=== PATIENT | female | born 1955 | race African-American/Black ===

== ENCOUNTER 2022-01-18 12:32 | Inpatient (IN) | payer MEDICARE, OTHER ==
[~2022-01-18] VITALS: Ht 167.6 cm; Wt 74.8 kg
--- NOTE | 2022-01-18 12:32 | NUR ---
Patient seen by physician
[2022-01-18 12:57] LABS: HEMATOCRIT 35.3 % (31.2-41.9); MEAN CORPUSCULAR VOLUME 75.1 fL (75.5-95.3); PLATELET COUNT (AUTO) 344 K/uL (179-408)
[2022-01-18 13:07] LABS: CARBON DIOXIDE 27 mmol/L (21-32); CHLORIDE 104 mmol/L (98-107); CREATININE 0.7 mg/dL (0.6-1.3); GLUCOSE 100 mg/dL (74-106); POTASSIUM 3.4 mmol/L (3.5-5.1); UREA NITROGEN, BLOOD 10 mg/dL (7-18)
[2022-01-18] MEDS ORDERED: QUET200T PO (13:14)
[2022-01-18] MEDS ORDERED: RISP2TAB5 PO (13:14)
[2022-01-18] MEDS ORDERED: OLAN20TA3 PO (13:14)
[2022-01-18] MEDS ORDERED: DIVA500T2 PO (13:14)
[2022-01-18] MEDS ORDERED: AMLO5TAB4 PO (13:14)
[2022-01-18] MEDS ORDERED: RISP3TAB5 PO (13:14)
[2022-01-18] MEDS ORDERED: LORA0.5T48 PO (13:14)
[2022-01-18 13:24] LABS: ETHANOL < 3 MG/DL (0-0)
[2022-01-18 13:27] LABS: ALANINE AMINOTRANSFERASE 23 U/L (14-59); ALKALINE PHOSPHATASE 74 U/L (50-136); ASPARTATE AMINOTRANSFERASE 21 U/L (15-37); BILIRUBIN,DIRECT 0.1 mg/dL (0.0-0.2); BILIRUBIN,TOTAL 0.6 mg/dL (0.2-1.0); TOTAL PROTEIN, SERUM 8.1 g/dL (6.4-8.2)
[2022-01-18 13:28] LABS: ACETAMINOPHEN < 10.0 ug/mL (10-30)
--- NOTE | 2022-01-18 14:12 | NUR ---
Report given to Russ Babb. Patient will be taken to room 145A.
[2022-01-18] MEDS ORDERED: ACETAMINOPHEN 325 MG TABLET PO PRN (15:00)
[2022-01-18] MEDS ORDERED: LORAZEPAM 0.5 MG TABLET PO PRN (15:00)
[2022-01-18] MEDS ORDERED: MAGNESIUM HYDROXIDE 30 ML LIQUID UDC PO PRN (15:00)
[2022-01-18] MEDS ORDERED: MAG HYDROX/AL HYDROX/SIMETH 30 ML LIQUID UDC PO PRN (15:00)
--- NOTE | 2022-01-18 15:45 | NUR ---
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 Lorenz and admitting general practice informed of admission by charge nurse.
[2022-01-18 16:12] VITALS: BP 136/94
[2022-01-18 20:00] VITALS: BP 134/90
[2022-01-18] MEDS ORDERED: TEMAZEPAM 7.5 MG CAPSULE PO PRN (21:00)
--- NOTE | 2022-01-19 05:13 | NUR ---
GPS NOTES: Received patient seating in the hallway, eating her dinner. Patient noted to be guarded when approached, she is being aggravated when attempt to engage in conversation. She is responding to internal stimuli, mumbling to herself and very paranoid. She did not sleep during shift, she was offered PRN to help her sleep but refused. She is observed to be keeping her dinner tray and gets mad when attempt to put it away from her. Patient is monitored for any escalation of behavior.
[2022-01-19 08:22] LABS: BILIRUBIN,TOTAL 0.4 mg/dL (0.2-1.0); CREATININE 0.9 mg/dL (0.6-1.3); POTASSIUM 3.4 mmol/L (3.5-5.1); TOTAL PROTEIN, SERUM 8.5 g/dL (6.4-8.2)
[2022-01-19 08:35] VITALS: BP 151/79
[2022-01-19] MEDS ORDERED: POTASSIUM CHLORIDE 20 MEQ TAB.PRT.SR PO ONE (10:00)
[2022-01-19] MEDS: DIVALPROEX 500 MG TABLET.DR PO SCH ×2 (11:45→16:35)
[2022-01-19] MEDS: risperiDONE 1 MG TABLET PO SCH ×2 (11:45→16:35)
--- NOTE | 2022-01-19 15:29 | NUR ---
GPS: Nursing Notes: Thought Disorder: Patient is awake and responding to her name, A/Ox3, continue to refuse her medications, poor appetite, hyperverbal, hyper-adventist, responding to internal stimuli by talking to self, mumbling to self, grandiose, believes that she is a psychiatrist, a psychologist, and a dewaxer, explained the pros or cons of medications, but continue to refuse her medications, Potassium level 3.4, but refused her loading dose, stated "My level will be okay when I eat my breakfast..", paranoid behavior, poor impulse control impaired judgment, unable to formulate a viable plan for self care, continue to monitor for safety, continue with treatment plan.
--- NOTE | 2022-01-19 15:30 | NUR ---
LEONILA Initial Discharge Note: Pt currently resides at [address] [facility] [address] ([phone]). LEONILA contacted the facility and the line was busy. LEONILA will continue to contact the facility regarding pt's safe return upon discharge. LEONILA fercho continue to work with pt and MD to ensure a safe and proper discharge plan.
--- NOTE | 2022-01-19 15:39 | NUR ---
Firearms Report: Elevator Worker completed and submitted a [employer] firearms report for 5150 a danger to others. A copy of report has been placed in patient chart.
--- NOTE | 2022-01-19 15:43 | NUR ---
LEONILA Family Contact: Pt does not have any available contact at this time. [place] [facility] [place][phone][place] and was not able to be connected due to a busy line.
[2022-01-19 19:00] LABS: THYROID STIMULATING HORMONE 2.7 mIU/mL (0.358-3.740)
[2022-01-19 19:49] VITALS: BP 122/97
[2022-01-19] MEDS: OLANZAPINE 5 MG TABLET PO SCH (20:13)
--- NOTE | 2022-01-20 04:22 | NUR ---
GPS NOTES: Patient remains in her room, A&0x1, she is hyperverbal with flight of ideas thought process, patient unable to make meaning conversation, she is keeping things in her room cj her meal trays, she is responding to internal stimuli. She can make her needs known,and calm when doing so. She is not sleeping, keeping herself occupied arranging things in her room. She refused medications, and prn medications. Frequent monitoring observed.
[2022-01-20] MEDS: DIVALPROEX 500 MG TABLET.DR PO SCH ×2 (08:19→17:00)
[2022-01-20] MEDS: risperiDONE 1 MG TABLET PO SCH ×2 (08:20→17:00)
[2022-01-20] MEDS: FERROUS SULFATE 325 MG TABEC PO SCH (10:00)
[2022-01-20] MEDS ORDERED: OLANZAPINE 10 MG VIAL IM ONE ×2 (11:00→19:45)
--- NOTE | 2022-01-20 11:12 | NUR ---
Patient became agitated, aggressive, striking out at others, combative, with high potential for physical harm to self and others. Dr. Lorenz ordered Zyprexa 10 mg IM. Security was called, 4 people were necessary to administer medication, but no force was applied or needed. Patient refuses vital signs. Patient will be monitored, fall and safety precautions implemented. Reassurance was given.
--- NOTE | 2022-01-20 15:57 | NUR ---
Patient is labile, anxious, outburst at times, restless, refusing her medications, uncooperative, not following directions. A/O X 2 to person. Pt. keeps collecting food trays in her room, and gets mad when they are removed. Patient ambulates without assistance. Self care. Patient is encourage to verbalize concerns. Fall and safety precautions implemented.
--- NOTE | 2022-01-20 19:59 | NUR ---
GPS: Received patient a/o x2 ambulatory. Patient is labile, anxious, outburst at this time. wiping the board and yelling at staff and patients, refused v/s, restless, uncooperative, not following directions. Pt gets mad when staff redirect her. called and received order for Zyprexa 10 mg im x1 now. z IM given without any problem and patient was cooperative. Patient is encourage to verbalize concerns. but is uncooperative at this time. Fall and safety precautions implemented.
--- NOTE | 2022-01-20 20:30 | NUR ---
patient is talking to her self. continue monitoring for safety.
[2022-01-20] MEDS: OLANZAPINE 5 MG TABLET PO SCH (21:00)
[2022-01-20] MEDS: DOCUSATE SODIUM 100 MG CAPSULE PO SCH (21:00)
--- NOTE | 2022-01-20 21:14 | NUR ---
GPS: Received Patient awake ambulating in the [address].A/Ox3, refused all po hs medications, poor appetite, hyperverbal, responding to internal stimuli by talking to self, mumbling to self, grandiose, believes that she is a psychiatrist, paranoid behavior, poor impulse control impaired judgment, unable to formulate a viable plan for self care, continue monitoring for safety.
[2022-01-21] MEDS: LORAZEPAM 1 MG TABLET PO PRN (03:15)
--- NOTE | 2022-01-21 03:15 | NUR ---
patient is very agitated. screaming in the me[address]. ativan 1 mg po prn given.
--- NOTE | 2022-01-21 04:15 | NUR ---
patient is calm now. resting in bed comfortably. prn for agitation effective.
--- NOTE | 2022-01-21 05:42 | NUR ---
GPS:Remain Uncooperative with nursing care, occ talking to her self loud, alert to self only. episodes of closing his room door and turnig the light off, isolative, sitting on her bed, slept 4.45 hrs through the night.continue plan of care.
[2022-01-21] MEDS: AMLODIPINE 5 MG TABLET PO SCH (08:27)
[2022-01-21] MEDS: DIVALPROEX 500 MG TABLET.DR PO SCH ×2 (08:27→17:00)
[2022-01-21] MEDS: FERROUS SULFATE 325 MG TABEC PO SCH (08:27)
[2022-01-21] MEDS: risperiDONE 1 MG TABLET PO SCH ×2 (08:28→17:00)
--- NOTE | 2022-01-21 16:03 | NUR ---
Patient is refusing medications, reise was filed today. Patient intentionally wet the floor for someone to slid and fall. Patient is anxious, hyperverbal, argumentative, uncooperative with nursing care, psychotic, delusional "Stop being a coward and speak to me face to face". Active listening provided. Fall and safety precautions implemented.
[2022-01-21] MEDS: OLANZAPINE 5 MG TABLET PO SCH (20:19)
[2022-01-21] MEDS: DOCUSATE SODIUM 100 MG CAPSULE PO SCH (20:19)
--- NOTE | 2022-01-21 20:55 | NUR ---
GPS: Pt.refused V/S check earlier as well as bedtime meds. despite explanation of risks vs benefits x3. Pt.is hyperverbal,uncooperative,responding to internal stimuli, has tangential thoughts,flight of ideas and easily irritable when approached and when being re-directed. No striking out behavior noted. AWOL precautions observed. Will continue to monitor for any escalation of behavior.
[2022-01-22] MEDS: DIVALPROEX 500 MG TABLET.DR PO SCH (08:29)
[2022-01-22] MEDS: risperiDONE 1 MG TABLET PO SCH ×2 (08:29→09:25)
[2022-01-22] MEDS: AMLODIPINE 5 MG TABLET PO SCH (08:29)
[2022-01-22] MEDS: FERROUS SULFATE 325 MG TABEC PO SCH (08:29)
--- NOTE | 2022-01-22 14:08 | NUR ---
Patient is selective and suspicious with medications, compliant with Risperdal with lots of prompts, paranoid about being poisoned, hyperverbal, anxious at times, internal stimuli, angry. A/O X 2 to person. Patient ambulates independently, self care. Active listening provided. Fall and safety precautions implemented.
[2022-01-22] MEDS: DIVALPROEX SPRINKLE 125 MG CAP.SPRINK PO SCH ×2 (17:00→20:13)
[2022-01-22] MEDS ORDERED: risperiDONE 1 MG TABLET PO SCH (17:00)
--- NOTE | 2022-01-22 17:22 | NUR ---
notified for Tuesday [place] hearing.
[2022-01-22] MEDS: risperiDONE 2 MG TABLET PO SCH (17:32)
[2022-01-22] MEDS: DOCUSATE SODIUM 100 MG CAPSULE PO SCH (20:13)
[2022-01-22] MEDS: OLANZAPINE 5 MG TABLET PO SCH (20:16)
--- NOTE | 2022-01-23 04:47 | NUR ---
GPS: Nursing Notes: Schizoeffictive: Patient experiences auditory hallucinations, has flight of ideas, and does not make sense with spoken to. Patient is hyperverbal, hyperreligious, and cannot formulate a plan of care. Easily becomes agitated and aggressive toward staff when entering her room, spoken to or given medications. Even with reassurance and education the patient is delirious. Verbally contracted for safety. Will continue to monitor for appropriate cognition abilities, saftey and compliance.
[2022-01-23] MEDS: LORAZEPAM 1 MG TABLET PO PRN (07:24)
[2022-01-23 07:43] VITALS: BP 147/88
[2022-01-23] MEDS: FERROUS SULFATE 325 MG TABEC PO SCH (07:49)
[2022-01-23] MEDS: DIVALPROEX SPRINKLE 125 MG CAP.SPRINK PO SCH ×4 (07:49→23:18)
[2022-01-23] MEDS: risperiDONE 2 MG TABLET PO SCH ×2 (07:49→16:28)
--- NOTE | 2022-01-23 07:50 | NUR ---
GPS: Dr. Dorman in the unit making his rounds at this time and instructed/ordered this tech writer to offer/give pt's meds.at this time. Pt.took her psychotropic meds.with little persuasion from staff. Will continue to monitor behavior.
[2022-01-23] MEDS: AMLODIPINE 5 MG TABLET PO SCH (08:02)
[2022-01-23] MEDS: GLUCERNA SHAKE 237 ML CAN PO SCH (11:01)
[2022-01-23 14:59] VITALS: BP 101/57
[2022-01-23 20:00] VITALS: BP 124/71
[2022-01-23] MEDS: DOCUSATE SODIUM 100 MG CAPSULE PO SCH (21:00)
[2022-01-23] MEDS: OLANZAPINE 5 MG TABLET PO SCH ×2 (21:00→23:18)
--- NOTE | 2022-01-23 23:19 | NUR ---
GPS: Pt.woke up and staff re-offered her Depakote 250mg and Zyprexa 10mg PO which pt.took with little persuasion from staff. Pt.remains hyperverbal,hyper latter-day, easily irritable when being re-directed. Safety emphasized. Behavior monitoring continues.
[2022-01-24 07:30] VITALS: BP 113/74
[2022-01-24] MEDS: DIVALPROEX SPRINKLE 125 MG CAP.SPRINK PO SCH ×3 (08:25→22:29)
[2022-01-24] MEDS: risperiDONE 2 MG TABLET PO SCH ×2 (08:25→16:51)
[2022-01-24] MEDS: AMLODIPINE 5 MG TABLET PO SCH (08:26)
[2022-01-24] MEDS: GLUCERNA SHAKE 237 ML CAN PO SCH (08:26)
[2022-01-24] MEDS: FERROUS SULFATE 325 MG TABEC PO SCH (08:26)
--- NOTE | 2022-01-24 15:16 | NUR ---
Patient is cooperative, isolative, withdrawn, selective with medications yet compliant. Patient is preoccupied about Court hearing tomorrow. Patient is aware that she could be reised. Patient is accusatory "Stop forcing me to do what you want" "I'll take those pills but stop talking. I had enough" Patient is self care. Pt. is encourage to vent feelings. Fall and safety precautions implemented.
[2022-01-24 16:00] VITALS: BP 111/69
[2022-01-24 19:47] VITALS: BP 112/72
[2022-01-24] MEDS: DOCUSATE SODIUM 100 MG CAPSULE PO SCH (22:29)
[2022-01-24] MEDS: OLANZAPINE 5 MG TABLET PO SCH (22:29)
--- NOTE | 2022-01-24 22:53 | NUR ---
GPS: Pt.took all her bedtime meds.earlier without any problems. Less irritable,agitated but remains hyper-anglican,hyperverbal. Continues to talk to self. Re-directed prn. Safety emphasized. Will continue to monitor.
[2022-01-25 07:47] VITALS: BP 143/93
[2022-01-25] MEDS: DIVALPROEX SPRINKLE 125 MG CAP.SPRINK PO SCH ×3 (08:31→20:53)
[2022-01-25] MEDS: AMLODIPINE 5 MG TABLET PO SCH (08:32)
[2022-01-25] MEDS: risperiDONE 2 MG TABLET PO SCH ×2 (08:32→16:51)
[2022-01-25] MEDS: FERROUS SULFATE 325 MG TABEC PO SCH (08:32)
[2022-01-25] MEDS: GLUCERNA SHAKE 237 ML CAN PO SCH (08:32)
--- NOTE | 2022-01-25 14:14 | NUR ---
GPS: Nursing Notes: Thought Disorder: Patient is awake and responding to her name, impaired judgment, responding to internal stimuli by talking to unseen others, mumbling to self when walking on the hallway, gets easily irritable when redirected, loud and pressured speech when redirected, grandiose, believes that she is a psychologist and physical aerodynamicist, believes that she is leaving today, stated "After, I talked to the appellate court judge.. I am leaving today..", "A woman needs to defend herself from any man..", poor anger management, poor impulse control, unable to formulate a viable plan for self care, poor appetite, continue to monitor for safety, continue with treatment plan.
[2022-01-25 17:12] VITALS: BP 90/49
[2022-01-25 19:41] VITALS: BP 98/60
[2022-01-25] MEDS: DOCUSATE SODIUM 100 MG CAPSULE PO SCH (20:53)
[2022-01-25] MEDS: OLANZAPINE 5 MG TABLET PO SCH (20:53)
[2022-01-25] MEDS: LORAZEPAM 1 MG TABLET PO PRN (20:53)
--- NOTE | 2022-01-26 03:12 | NUR ---
Received patient laying in bed, talking to herself and clearly responding to internal stimuli. The patients tone was angry and argumentative during that time. After a while , the patient was standing in her doorway hyperverbal and rambling with delusions of grandeur such as " I am the nguyen and everybody knows it. " Plus a lot of nonsensical congregational references. This patient did however take her medications without any problems. The patient has been up and down all night so far but staying in her room mostly. Safety stratiges are in place and continuing to monitor for inappropriate outbursts , behavior escalation and medication compliance.
[2022-01-26 07:30] VITALS: BP 138/78
[2022-01-26] MEDS: DIVALPROEX SPRINKLE 125 MG CAP.SPRINK PO SCH ×3 (08:36→20:39)
[2022-01-26] MEDS: FERROUS SULFATE 325 MG TABEC PO SCH (08:37)
[2022-01-26] MEDS: risperiDONE 2 MG TABLET PO SCH ×2 (08:39→16:38)
[2022-01-26] MEDS: GLUCERNA SHAKE 237 ML CAN PO SCH (08:39)
[2022-01-26] MEDS: AMLODIPINE 5 MG TABLET PO SCH (08:39)
--- NOTE | 2022-01-26 09:11 | NUR ---
Discharge Update: Samina Valentin in [employer] at [facility] ([phone]) where pt was brought from returned SW's call and confirmed that pt is welcome back upon discharge to their facility. Samina stated to ask for her when calling or Mai the nursing home social worker. Pt does not have any family contact at this time.
--- NOTE | 2022-01-26 12:11 | NUR ---
GPS: Nursing Notes: Thought Disorder: Patient is awake and responding to her name, impaired judgment, responding to internal stimuli by constantly talking to unseen others, internally preoccupied, poor appetite, believes that we are trying to poison her, hyper-orthodox, hyperverbal, poor impulse control, poor anger management, loud and pressured speech, verbal abusive at times, threatening staff with a law koby, resistant with nursing care, episodes of talking incoherently, labile, unpredictable behavior, unable to formulate a viable plan for self care, continue to monitor for safety, continue with treatment plan.
[2022-01-26 15:44] VITALS: BP 127/76
[2022-01-26 20:06] VITALS: BP 115/53
[2022-01-26] MEDS: OLANZAPINE 5 MG TABLET PO SCH (20:39)
[2022-01-26] MEDS: LORAZEPAM 1 MG TABLET PO PRN (20:39)
[2022-01-26] MEDS: DOCUSATE SODIUM 100 MG CAPSULE PO SCH (20:39)
--- NOTE | 2022-01-27 02:37 | NUR ---
The patient has been up and down during the night. Tangental speech , grandiose delusions and labile moods. This technical document writer is unable to engage in any meaningful or normal conversation with the patient. The patient can not stay on topic or answer question appropriately. However, this patient has been medication compliant. It is clear that she is responding to internal stimuli frequently. And although she appears calmer then previous nights, the patients speech is edgy, borderline threatening, and behavior can be unpredictable. Safety Stratiges are in place and continuing to monitor for any behavior escalation or distress.
[2022-01-27 07:30] VITALS: BP 146/85
[2022-01-27] MEDS: risperiDONE 2 MG TABLET PO SCH ×2 (08:36→16:50)
[2022-01-27] MEDS: FERROUS SULFATE 325 MG TABEC PO SCH (08:37)
[2022-01-27] MEDS: AMLODIPINE 5 MG TABLET PO SCH (08:37)
[2022-01-27] MEDS: DIVALPROEX SPRINKLE 125 MG CAP.SPRINK PO SCH ×3 (08:37→20:29)
[2022-01-27] MEDS: GLUCERNA SHAKE 237 ML CAN PO SCH (08:38)
[2022-01-27 09:53] LABS: CREATININE 0.8 mg/dL (0.6-1.3); MAGNESIUM 1.9 mg/dL (1.8-2.4)
--- NOTE | 2022-01-27 13:59 | NUR ---
Patient is isolative, talkative, grandiose delusional. Pt. 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 I want what is best for them!" Patient is cooperative, complaint with medications. A/O X 2 to person, place. Active listening provided. Fall and safety precautions implemented.
[2022-01-27 16:00] VITALS: BP 99/66
[2022-01-27 20:18] VITALS: BP 142/85
[2022-01-27] MEDS: DOCUSATE SODIUM 100 MG CAPSULE PO SCH (20:29)
[2022-01-27] MEDS: OLANZAPINE 5 MG TABLET PO SCH (20:29)
--- NOTE | 2022-01-27 20:30 | NUR ---
RECEIVED PATIENT IN HER ROOM. SHE IS NOTED A/O X 2. SHE IS LABILE, TANGENTAL SPEECH, EASILY IRRITABLE. WHEN ASKED WHY SHE WAS ADMITTED TO [facility]HU AND HOW SHE WAS FEELINGS, SHE RESPONDED, "I HAVE A FRIEND WHO LOOKS LIKE YOU". PATIENT HAS POOR INSIGHT INTO HER ADMISSION TO [facility]HU. NO AGGRESSIVE OR COMBATIVE BEHAVIOR NOTED AT THIS TIME. PATIENT IS COMPLIANT WITH HER MEDICATION REGIMENT. SHE IS REASSURED FOR HER SAFETY. SAFETY AND FALL PRECAUTIONS ARE IN PLACE. SHE WAS GIVEN PO FLUIDS AND SNACKS. WILL CONTINUE TO MONITOR.
[2022-01-28 07:30] VITALS: BP 149/91
[2022-01-28] MEDS: DIVALPROEX SPRINKLE 125 MG CAP.SPRINK PO SCH ×3 (09:22→20:18)
[2022-01-28] MEDS: FERROUS SULFATE 325 MG TABEC PO SCH (09:22)
[2022-01-28] MEDS: risperiDONE 2 MG TABLET PO SCH ×2 (09:22→16:33)
[2022-01-28] MEDS: AMLODIPINE 5 MG TABLET PO SCH (09:23)
[2022-01-28] MEDS: GLUCERNA SHAKE 237 ML CAN PO SCH (09:24)
--- NOTE | 2022-01-28 14:28 | NUR ---
Gps/Jacquard Lace Weaver- Loud, talking to herself, tends to closed her door, discouraged from doing so. Pacing around, digging into the trash , gets loud and irritable when being redirected . Rudeness noted, calling staff names.
[2022-01-28 16:00] VITALS: BP 120/65
[2022-01-28 19:43] VITALS: BP 126/78
[2022-01-28] MEDS: OLANZAPINE 5 MG TABLET PO SCH (20:18)
[2022-01-28] MEDS: DOCUSATE SODIUM 100 MG CAPSULE PO SCH (20:18)
--- NOTE | 2022-01-28 20:45 | NUR ---
RECEIVED PATIENT IN HER ROOM SITTING IN HER BED. SHE IS NOTED A/O X 2. SHE APPEARS TO BE RESPONDING TO INTERNAL STIMULI. HER SPEECH IS TANGENTAL WITH A WORD SALAD AND GRANDIOSE DELUSIONS. 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 I AM LEAVING TOMORROW. I WANT MY MEDICATIONS NOW BEFORE I GO TO SLEEP". PATIENT IS NONSENSICAL AT TIMES. NO AGGRESSIVE NO COMBATIVE BX NOTED AT THIS TIME. PATIENT IS ABLE TO COMPLY WITH HER MEDICATION REGIMENT EXCEPT FOR COLACE, SHE STATED, "I DON'T HAVE A PROBLEM POOPING". PATIENT IS REASSURED FOR HER SAFETY. SAFETY AND FALL PRECAUTIONS ARE IN PLACE, PATIENT WAS GIVEN PO FLUIDS AND SNACKS.V/S STABLE. WILL CONTINUE TO MONITOR.
--- NOTE | 2022-01-29 06:15 | NUR ---
patient slept for approx 2hrs through the night. She was offered Temazepam 7.5mg PO PRN for insomnia but she declined. She had a shower at 0400. no aggressive or combative bx noted during the shift. will continue to monitor.
--- NOTE | 2022-01-29 06:56 | NUR ---
patient slept for approx 2hrs through the night. She was offered Temazepam 7.5mg PO PRN for insomnia but she declined. She had a shower at 0400. no aggressive or combative bx noted during the shift. she continue talking to herself. work salad. will continue to monitor.
[2022-01-29] MEDS: DIVALPROEX SPRINKLE 125 MG CAP.SPRINK PO SCH (08:28)
[2022-01-29] MEDS: risperiDONE 2 MG TABLET PO SCH (08:29)
[2022-01-29] MEDS: FERROUS SULFATE 325 MG TABEC PO SCH (08:29)
[2022-01-29] MEDS: AMLODIPINE 5 MG TABLET PO SCH (08:29)
[2022-01-29 08:30] VITALS: BP 136/90
[2022-01-29] MEDS: GLUCERNA SHAKE 237 ML CAN PO SCH (08:33)
--- NOTE | 2022-01-29 08:53 | NUR ---
LEONILA Discharge Note: Pt will be discharged to [facility] located at [address] [place] [id number] ([phone]) via Ambulance transportation at 11AM. LEONILA spoke with admin coordinator, Blanca and Samina in admissions ([phone]) at the facility who state they are ready to accept the patient today. Pt is aware and agreeable with discharge plan. Pt does not have any family contact at this time. Pt is alert and oriented x1, is unable to plan for self-care at this time. However, pt is willing to accept care at SNF. Pt denies any suicidal or homicidal ideation. Pt will follow-up at the facility with her Psychiatrist, Dr. Jorge Link ([phone]), Psychologist, Dr. Alicea ([phone]), and Industrial Roofer, Dr. Willie Ramos ([phone]). Pt presents with calm mood and congruent affect. PHARMACY: [facility] [phone].
--- NOTE | 2022-01-29 10:30 | NUR ---
Gps/Assistant Kitchen Manager- Called [facility] report was given to Sulema Redd, requesting records of medications , was faxed as requested. All valuables/jewelries given back to patient.Patient was well informed of her discharged plan.
--- NOTE | 2022-01-29 11:26 | NUR ---
Gps/Flame Annealing Machine Operator- Discharged to [facility] via ambulance, patient in no distress, no complaints noted, no S.I. no H.I. in good spirirt
== END 2022-01-29 11:29 | DRG 885 ==
LOC: ER 12:32 → GPS 14:16
PROVIDERS: ADMIT Psychiatry & Neurology Psychosomatic Medicine; ATTEND Internal Medicine
DX: F25.0 Schizoaffective disorder, bipolar type (principal); E11.9 Type 2 diabetes mellitus without complications; E61.1 Iron deficiency; E87.6 Hypokalemia; I10 Essential (primary) hypertension; Z20.822 Contact with and (suspected) exposure to COVID-19
CPT/HCPCS: 36415; 80164; 83550; 83735; 84443; 85025; A4663; G0480; J2358